=== PATIENT | male | born 1950 | race Caucasian/White ===

== ENCOUNTER 2022-04-05 11:42 | Emergency (ER) | payer MEDICARE, MEDICAID ==
[~2022-04-05] VITALS: Ht 182.9 cm; Wt 77.2 kg
[~2022-04-05 11:42] MED LIST: BACL10TA PO; BUSP15TA60 PO; CARI350T22 PO; CITA-243 PO; DEXT10TA PO; FENO145T27 OR; FENO54TA4 PO; GABA250S2 PO; GLIP10TA9 PO; IBUP800T27 PO; INSLANTI SC; LISI2.5T47 PO; LORA0.5T20 PO; MELA3TAB27 PO; SITA100T7 PO
[2022-04-05] MEDS ORDERED: HYDROcodone-ACET 5/325MG TAB PO ONE (15:30)
[2022-04-05 15:32] VITALS: BP 182/73
== END 2022-04-05 15:41 | disposition home or self-care (01) ==
LOC: ER 11:42 → EDBD 11:42 → ER 15:39
DX: G89.29 Other chronic pain (principal); M54.50 Low back pain, unspecified; E11.9 Type 2 diabetes mellitus without complications; I10 Essential (primary) hypertension; Z79.4 Long term (current) use of insulin; Z79.899 Other long term (current) drug therapy
CPT/HCPCS: 72131

== ENCOUNTER 2024-03-05 12:48 | Emergency (ER) | payer MEDICARE, MEDICAID ==
[~2024-03-05] VITALS: Ht 180.3 cm; Wt 73.0 kg
[~2024-03-05 12:48] MED LIST changes: +CARI-578 PO; -CARI350T22 PO; -CITA-243 PO; +CITA10TA6 PO; -GABA250S2 PO; +GABA250S7 PO; +IBUP-1456 PO; -IBUP800T27 PO; +LORA-1121 PO; -LORA0.5T20 PO
[2024-03-05 15:03] VITALS: BP 146/82; PULSE 82; RESP 16; TEMP 98.4; O2SAT 96
== END 2024-03-05 15:27 | disposition home or self-care (01) ==
LOC: EDBD 12:48 → ER 13:00
DX: M25.561 Pain in right knee (principal); I10 Essential (primary) hypertension; E11.9 Type 2 diabetes mellitus without complications; W01.0XXA Fall on same level from slipping, tripping and stumbling without subsequent striking against object, initial encounter; Y93.89 Activity, other specified; Y92.89 Other specified places as the place of occurrence of the external cause; Y99.8 Other external cause status

== ENCOUNTER 2025-03-12 07:02 | Day surgery (SDC) | payer OTHER, MEDICAID ==
[2025-03-09 10:48] LABS: Hematocrit 44.9 % (41.0-53.0); Hemoglobin 15.8 g/dL (13.5-17.5); Mean Corpuscular Hemoglobin 33.3 pg (28.0-32.0); Mean Corpuscular Volume 94.7 fL (80.0-100.0); Nucleated Red Blood Cells % 0.0 %
[2025-03-09 10:53] LABS: Urine Protein, UAD Negative (Negative)
[2025-03-09 11:08] LABS: INR 1.03 (0.9-1.15); Partial Thromboplastin Time 26.8 SEC (24.5-34.5); Prothrombin Time 10.9 sec (9.3-11.8)
[2025-03-09 12:02] LABS: Alanine Aminotransferase 13 U/L (7-40); Albumin 4.4 g/dL (3.2-4.8); Alkaline Phosphatase 61 U/L (46-116); Anion Gap 7 (5-15); BUN/Creatinine Ratio 15.9 (10.0-20.0); Blood Urea Nitrogen 20 mg/dL (9-23); Calcium 9.3 mg/dL (8.7-10.4); Carbon Dioxide 27 mmol/L (20-31); Chloride 104 mmol/L (98-107); Sodium 138 mmol/L (136-145); Total Protein 6.6 g/dL (5.7-8.2)
[2025-03-09 12:03] LABS: Bilirubin, Total 0.5 mg/dL (0.2-1.0)
[2025-03-09 12:12] LABS: Glucose 315 mg/dL (74-106); Potassium 5.1 mmol/L (3.5-5.1)
[~2025-03-12] VITALS: Ht 175.3 cm; Wt 70.3 kg
[~2025-03-12 07:02] MED LIST changes: -BACL10TA PO; -BUSP15TA60 PO; +CEL100T PO; +CHOLTAB12 PO; -CITA10TA6 PO; +CYAN-17 PO; -DEXT10TA PO; +EMPA1TAB PO; +ESCI5TAB PO; -FENO145T27 OR; -FENO54TA4 PO; -GABA250S7 PO; +HYDR-4902 PO; -IBUP-1456 PO; -LORA-1121 PO; -MELA3TAB27 PO; +TAMS0.4C39 PO
[2025-03-12] MEDS ORDERED: BUPIVACAINE HCL 0 ML ONE (07:21)
[2025-03-12] MEDS ORDERED: LIDOCAINE 2% (LOCAL ANESTH.) PF 5ml SDV ONE (07:25)
[2025-03-12] MEDS ORDERED: METOCLOPRAMIDE HCL 5MG/ml INJ 2ml VIAL ONE (07:25)
[2025-03-12] MEDS ORDERED: ONDANSETRON HCL 4 MG/2 ML VIAL ONE (07:25)
[2025-03-12] MEDS ORDERED: MIDAZOLAM HCL 2MG/2ML 2ml VIAL (1mg/ml) ONE (07:25)
[2025-03-12] MEDS ORDERED: fentaNYL CITRATE 100 MCG/2 ML VL ONE (07:25)
[2025-03-12] MEDS ORDERED: PROPOFOL 10 MG/ML 20 ML IV ONE (07:26)
[2025-03-12] MEDS ORDERED: ROCURONIUM 10MG/ML 10ML VIAL IV ONE (07:26)
[2025-03-12] MEDS ORDERED: BUPIVACAINE 0.25% INJ 50ML VIAL ONE (07:32)
[2025-03-12] MEDS: ceFAZolin 2 GM/D5W50ml 50 ML IV ONE (07:34)
[2025-03-12] MEDS ORDERED: LIDOCAINE W/ EPINEPHRINE 1% 20ML VIAL ONE (08:11)
[2025-03-12] MEDS: TRANEXAMIC ACID 10 ML ONE (08:11)
[2025-03-12] MEDS ORDERED: HYDROmorphone HCL 2 MG/ML VL/or syr ONE (08:41)
[2025-03-12] MEDS ORDERED: SUGAMMADEX 200mg/2ml Vial (100MG/ML) IV ONE (08:45)
[2025-03-12 09:20] VITALS: PULSE 79; RESP 12; TEMP 97.3; O2SAT 100
--- NOTE | 2025-03-12 09:38 | DVHOP2 ---
Operative Report - 2 Report Details Date: 03/12/25 Preop Diagnosis: Right shoulder rotator cuff tear with subacromial impingement Postop Diagnosis: Right shoulder rotator cuff tear with subacromial impingement Surgeon: Roscoe Esqueda MD Print Line Feeder: Alisha Herrera, Physician Print Line Feeder Anesthesiologist: Kj Shaw CRNA Anesthesia: General, Regional Implant: [place] anchor x1, active Braid Christine collagen implanted suture x1 Consent: The patient was informed of the risks and benefits of the procedure. These include but are not limited to complications of anesthesia, postoperative infection, incomplete relief of symptoms, recurrence of symptoms, damage to blood vessels, nerves and tendons, deep venous thrombosis, pulmonary embolism and possible need for repeat surgery in the future. Complications: None Estimated Blood Loss: Less than 5 mL Indications for Surgery: The patient is a 75-year-old male who presented to the clinic with a history of shoulder pain. Clinical and radiological evaluation was suggestive of rotator cuff pathology, either massive rotator cuff tear because of his prior history of shoulder surgery or a new tear. Nonoperative and operative management options were discussed. CT arthrogram did not reveal a large tear of the supraspinatus. Initially reverse shoulder replacement was discussed with him but later the plan was changed to diagnostic arthroscopy and possible rotator cuff repair based on the CT arthrogram. A detailed discussion was had which is outlined in the preoperative clinic visit note. Name of Procedure Performed Right shoulder arthroscopy, rotator cuff repair of the subscapularis, subacromial decompression with acromioplasty, extensive synovial debridement Procedure Details Procedure Details: The patient was identified in the preoperative holding area and the surgical site was marked. The consent was verified. The patient was brought into the operating room and placed supine on the operating table. General anesthesia was administered. The beachchair attachment was applied to the operating table. The patient was now brought up into the beachchair position, approximately 60 degrees. The arm was prepped and draped in the usual sterile manner. The arm was placed in the attachment for the spyder, mechanical arm carrasco. The extremity was examined under anesthesia and was found to have good passive range of motion. A timeout was performed to confirm the identity of the patient, the nature of surgery, the site of surgery, the available of implants and x-rays and allergies to medications A standard posterior portal established. A 30 degree scope was inserted A standard anterior portal was established. A probe was inserted and the findings are as follows: 1. Completely torn upper 3rd subscapularis tendon 2. Absent biceps tendon 3. Circumferential degenerative labral tear 4. 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 Significant synovitis 6. Partial articular rotator cuff tear, 20% The subscapularis tear was significantly displaced. Previous anchors were noted slightly inferiorly. These were presumably for biceps tenodesis. I decided to use a knotless anchor. A collagen braided suture was used to pass around the subscapularis as it was a revision surgery. One more fiber tape was passed. This was entered into the knotless anchor. A punch was used. The knotless anchor was now inserted. This was an osseo anchor. A PDS stitch was used to vanesa the articular sided tear. This was debrided before passing the stitch. The subacromial space was entered. Significant bursitis and scar tissue was noted. Decompression was carried out with bursectomy. Extensive synovectomy and debridement was done due to the previous scar tissue to evaluate the rotator cuff. The PDS stitch was noted. No significant rotator cuff tear was noted, bursal sided tear approximately 10% was noted. The combined tear was less than 50% and I decided to leave it intact and not take it down. Debridement of the rotator cuff was done from the bursal side as well. The acromion was now exposed. Put signs of previous acromioplasty were noted, however there was a large bone spur and downsloping acromion. Subacromial decompression was completed with acromioplasty to remove approximately 5 mm of acromion as it was downsloping in nature. Irrigation was given and the skin portals were closed with 2-0 nylon Sterile dressing was applied. Local anesthetic was given. Shoulder immobilizer was applied Disposition: Good, the patient was extubated and taken to recovery without any complications. The patient was examined in the recovery and had intact neurovascular exam Plan: To remain in the brace. Follow-up in 1 week. To start early range of motion exercises as tolerated. We will start with passive range of motion and progress to active assisted in two weeks. Condition Good Disposition Home ROSCOE ESQUEDA MD Mar 12, 2025 09:38
[2025-03-12 09:40] VITALS: PULSE 91; RESP 16; O2SAT 97
[2025-03-12 09:50] VITALS: PULSE 90; RESP 17; O2SAT 98
[2025-03-12 10:00] VITALS: PULSE 87; RESP 18; O2SAT 98
[2025-03-12 11:00] VITALS: BP 115/45; PULSE 84; RESP 18; O2SAT 95
== END 2025-03-12 11:15 | disposition home or self-care (01) ==
LOC: SUR 07:02
PROVIDERS: ATTEND Orthopaedic Surgery Sports Medicine
DX: M75.121 Complete rotator cuff tear or rupture of right shoulder, not specified as traumatic (principal); M25.811 Other specified joint disorders, right shoulder; M94.211 Chondromalacia, right shoulder; M65.811 Other synovitis and tenosynovitis, right shoulder; S43.431A Superior glenoid labrum lesion of right shoulder, initial encounter; I10 Essential (primary) hypertension; E11.9 Type 2 diabetes mellitus without complications; E78.00 Pure hypercholesterolemia, unspecified; N40.0 Benign prostatic hyperplasia without lower urinary tract symptoms; G47.00 Insomnia, unspecified; Z79.899 Other long term (current) drug therapy; Z90.49 Acquired absence of other specified parts of digestive tract; Z98.890 Other specified postprocedural states; Z90.89 Acquired absence of other organs; Z88.0 Allergy status to penicillin; Z88.8 Allergy status to other drugs, medicaments and biological substances; X58.XXXA Exposure to other specified factors, initial encounter; Y93.89 Activity, other specified; Y92.89 Other specified places as the place of occurrence of the external cause; Y99.8 Other external cause status
CPT/HCPCS: 29826; 29827; 36415; 80053; 81001; 82962; 85025; 85610; 85730; C1713; J0169; J0690; J1100; J1171; J2003; J2250; J2405; J2704; J2765; J3010; A4565; J3490